=== PATIENT | male | born 1955 | race Caucasian/White ===

== ENCOUNTER 2024-12-13 06:44 | Inpatient (IN) | payer MEDICARE, OTHER ==
[~2024-12-13] VITALS: Ht 172.7 cm; Wt 91.6 kg
[2024-12-13] MEDS ORDERED: Amlodipine (06:52)
[2024-12-13] MEDS ORDERED: Lisinopril (06:52)
[2024-12-13 07:09] LABS: BASOPHILS % (AUTO) 0.6 % (0.0-2.0); EOSINOPHILS # (AUTO) 0.2 K/uL (0.0-0.7); HEMATOCRIT 39.4 % (36.7-47.1); HEMOGLOBIN 13.2 g/dL (12.5-16.3); MEAN CORPUSCULAR HEMOGLOBIN 28.7 uug (23.8-33.4); MEAN CORPUSCULAR HGB CONC 34 g/dL (32.5-36.3); MEAN CORPUSCULAR VOLUME 85.6 fL (73.0-96.2); MONOCYTES # (AUTO) 0.6 K/uL (0.1-1.30); PLATELET COUNT (AUTO) 373 K/uL (152-348); RED BLOOD CELL COUNT(AUTO) 4.61 MIL/uL (4.06-5.63); RED CELL DISTRIBUTION WIDTH 14.7 % (12.1-16.2); WHITE BLOOD COUNT (AUTO) 7.1 K/uL (3.6-10.2)
[2024-12-13] MEDS ORDERED: IOHEXOL 350 100 ML INFUS..BTL ONE (07:14)
[2024-12-13] MEDS ORDERED: SWABABLE VALVE TRANSFER SET EA MC ONE (07:14)
[2024-12-13] MEDS ORDERED: IV NORMAL SALINE 250 ML IV ONE (07:15)
[2024-12-13 07:18] LABS: CALCIUM 9.6 mg/dL (8.5-10.1); CARBON DIOXIDE 30 mmol/L (21-32); CHLORIDE 97 mmol/L (98-107); GLUCOSE 130 mg/dL (74-106); POTASSIUM 3.6 mmol/L (3.5-5.1); SODIUM SERUM 137 mmol/L (136-145); UREA NITROGEN, BLOOD 18 mg/dL (7-18)
[2024-12-13 07:38] LABS: EOSINOPHILS % (AUTO) 2.5 % (0.0-7.0); LYMPHOCYTES # (AUTO) 2.6 K/uL (0.8-4.8); LYMPHOCYTES % (AUTO) 36.7 % (20.5-51.5); MONOCYTES % (AUTO) 8.8 % (0.0-11.0); NEUTROPHILS # (AUTO) 3.6 K/uL (1.8-8.9); NEUTROPHILS % (AUTO) 51.4 % (38.5-71.5)
[2024-12-13 08:51] LABS: *BILIRUBIN,URIN NEGATIVE (NEGATIVE); *BLOOD, URINE NEGATIVE (NEGATIVE); *CLARITY,URINE CLEAR (CLEAR); *COLOR,URINE YELLOW (YELLOW); *KETONES,URINE NEGATIVE (NEGATIVE); *PROTEIN,URINE NEGATIVE (NEGATIVE); *UROBILINOGEN,URINE 0.2 E.U./dl (NORMAL); LEUKOCYTE ESTERASE ,URINE NEGATIVE (NEGATIVE); NITRITE, URINE NEGATIVE (NEGATIVE); PH,URINE 5.5 (5.0-8.0); UGLUCOSE NEGATIVE (NEGATIVE)
[2024-12-13] MEDS ORDERED: ASPIRIN 81 MG TAB.CHEW ONE (09:08)
[2024-12-13] MEDS: ASPIRIN 81 MG TAB.CHEW PO ONE (09:08)
[2024-12-13] MEDS ORDERED: ROSU10TA2 PO (11:57)
[2024-12-13] MEDS ORDERED: LEVO25TA9 PO (11:57)
[2024-12-13] MEDS ORDERED: AMLO-212 PO (11:57)
[2024-12-13] MEDS ORDERED: LISI1TAB32 PO (11:57)
[2024-12-13] MEDS ORDERED: MAGNESIUM HYDROXIDE 30 ML LIQUID UDC PO PRN (15:45)
[2024-12-13] MEDS ORDERED: ACETAMINOPHEN 325 MG TABLET PO PRN (15:45)
[2024-12-13] MEDS ORDERED: ONDANSETRON 4 MG/2 ML VIAL IV PRN (15:45)
[2024-12-13] MEDS ORDERED: TEMAZEPAM 15 MG CAPSULE PO PRN (15:45)
[2024-12-13 15:56] VITALS: BP 106/55; TEMP 97.9; O2SAT 98
[2024-12-13 19:50] VITALS: BP 118/70; TEMP 97.9; O2SAT 98
[2024-12-13] MEDS ORDERED: Medication Not On Formulary EA (Rosuvastatin Calcium (Crestor) 10 MG) PO SCH (21:00)
[2024-12-14 00:05] VITALS: BP 119/65; TEMP 97.6; O2SAT 99
[2024-12-14 05:20] VITALS: BP 120/74; TEMP 97.5; O2SAT 99
[2024-12-14] MEDS: PANTOPRAZOLE SODIUM 40 MG TABLET.DR PO SCH (06:08)
[2024-12-14] MEDS: LEVOTHYROXINE SODIUM 25 MCG TABLET PO SCH (06:08)
[2024-12-14 07:30] LABS: BASOPHILS % (AUTO) 0.5 % (0.0-2.0); EOSINOPHILS # (AUTO) 0.2 K/uL (0.0-0.7); EOSINOPHILS % (AUTO) 2.8 % (0.0-7.0); HEMATOCRIT 37.7 % (36.7-47.1); HEMOGLOBIN 12.6 g/dL (12.5-16.3); LYMPHOCYTES # (AUTO) 2.7 K/uL (0.8-4.8); LYMPHOCYTES % (AUTO) 37.9 % (20.5-51.5); MEAN CORPUSCULAR HEMOGLOBIN 28.4 uug (23.8-33.4); MEAN CORPUSCULAR HGB CONC 33 g/dL (32.5-36.3); MEAN CORPUSCULAR VOLUME 85.2 fL (73.0-96.2); MONOCYTES # (AUTO) 0.6 K/uL (0.1-1.30); MONOCYTES % (AUTO) 8.1 % (0.0-11.0); NEUTROPHILS # (AUTO) 3.6 K/uL (1.8-8.9); NEUTROPHILS % (AUTO) 50.7 % (38.5-71.5); PLATELET COUNT (AUTO) 352 K/uL (152-348); RED BLOOD CELL COUNT(AUTO) 4.43 MIL/uL (4.06-5.63); RED CELL DISTRIBUTION WIDTH 14.6 % (12.1-16.2); WHITE BLOOD COUNT (AUTO) 7.1 K/uL (3.6-10.2)
[2024-12-14 07:40] LABS: DIFFERENTIAL COMMENT 1
[2024-12-14 07:55] LABS: ALBUMIN 3.5 g/dL (3.4-5.0); BILIRUBIN,TOTAL 0.6 mg/dL (0.2-1.0); CALCIUM 8.8 mg/dL (8.5-10.1); CREATININE 0.9 mg/dL (0.6-1.3); MAGNESIUM 2.3 mg/dL (1.8-2.4); PHOSPHOROUS 3.6 mg/dL (2.5-4.9); POTASSIUM 4.2 mmol/L (3.5-5.1); TOTAL PROTEIN, SERUM 7.5 g/dL (6.4-8.2)
[2024-12-14] MEDS ORDERED: Medication Not On Formulary EA (Lisinopril/HCTZ (Lisinopril-Hctz 10-12.5 Mg Tab) 1 EACH) PO SCH (09:00)
[2024-12-14 09:10] LABS: THYROID STIMULATING HORMONE 27.584 mIU/mL (0.358-3.740)
[2024-12-14] MEDS: ASPIRIN EC 81 MG TABLET.DR PO SCH (09:23)
[2024-12-14 11:07] VITALS: BP 132/69; TEMP 98; O2SAT 100
[2024-12-14] MEDS ORDERED: ASPI-618 PO (12:16)
[2024-12-14] MEDS ORDERED: LEVO50TA8 PO (12:16)
[2024-12-14] MEDS ORDERED: ATORVASTATIN 40 MG TABLET PO SCH (21:00)
== END 2024-12-14 13:15 | disposition home or self-care (01) | DRG 69 ==
LOC: ER 06:44 → TELE3 11:40
PROVIDERS: ADMIT Internal Medicine; ATTEND Internal Medicine
DX: G45.9 Transient cerebral ischemic attack, unspecified (principal); R20.8 Other disturbances of skin sensation; R29.700 NIHSS score 0; E78.5 Hyperlipidemia, unspecified; E03.9 Hypothyroidism, unspecified; Z79.890 Hormone replacement therapy; I67.1 Cerebral aneurysm, nonruptured; E66.9 Obesity, unspecified; Z68.30 Body mass index [BMI] 30.0-30.9, adult; I10 Essential (primary) hypertension; R73.03 Prediabetes; Z87.2 Personal history of diseases of the skin and subcutaneous tissue; R94.31 Abnormal electrocardiogram [ECG] [EKG]; Z86.69 Personal history of other diseases of the nervous system and sense organs
CPT/HCPCS: 36415; 70450; 70496; 71045; 83735; 84100; 84443; 84484; 85025; 85730; A4606; A4663; G0378; Q9967